=== PATIENT | male | born 1975 | race Two or more races ===

== ENCOUNTER 2022-04-10 17:04 | Emergency (ER) | payer SELFPAY ==
[~2022-04-10] VITALS: Ht 172.7 cm; Wt 70.0 kg
[2022-04-10 17:07] VITALS: BP 153/86
[2022-04-10] MEDS ORDERED: DIPH25CA83 MT (18:25)
[2022-04-10] MEDS ORDERED: CLOT113C TP (18:25)
[2022-04-10] MEDS ORDERED: DIPHENHYDRAMINE 50MG/ML VIAL IM ONE (18:30)
== END 2022-04-10 19:21 | disposition home or self-care (01) ==
LOC: ER 17:04
DX: R21 Rash and other nonspecific skin eruption (principal); I10 Essential (primary) hypertension
CPT/HCPCS: 96372; 99283; J1200

== ENCOUNTER 2022-07-21 17:25 | Emergency (ER) | payer SELFPAY ==
[~2022-07-21] VITALS: Ht 177.8 cm; Wt 81.0 kg
[~2022-07-21 17:25] MED LIST: CLOT113C TP; DIPH25CA83 MT
[2022-07-21] MEDS ORDERED: ACETAMINOPHEN 325MG TABLET PO ONE (18:45)
[2022-07-21] MEDS ORDERED: TETANUS, DIPHTHERIA, PERTUSSIS VAC/PF 0.5ML (>10YR OLD) IM ONE (18:45)
[2022-07-21] MEDS ORDERED: ACET-2708 MT (20:55)
[2022-07-21] MEDS ORDERED: CEPH500C2 MT (20:57)
[2022-07-21 21:35] VITALS: BP 135/76
== END 2022-07-21 21:37 | disposition home or self-care (01) ==
LOC: ER 17:25
DX: S01.01XA Laceration without foreign body of scalp, initial encounter (principal); I10 Essential (primary) hypertension; W01.0XXA Fall on same level from slipping, tripping and stumbling without subsequent striking against object, initial encounter; Y93.89 Activity, other specified; Y92.89 Other specified places as the place of occurrence of the external cause; Y99.8 Other external cause status
CPT/HCPCS: 12002; 70450; 90471; 90715; 99285; Z7610